=== PATIENT | female | born 1965 | race Caucasian/White ===

== ENCOUNTER 2023-12-17 21:52 | Observation (INO) | payer OTHER, SELFPAY ==
[2023-12-17 22:01] VITALS: BP 161/72; PULSE 79; RESP 16; TEMP 36.8; O2SAT 96; BMI 34.5
--- NOTE | 2023-12-17 22:18 | CRLHL7_ITS ---
For Patients: As a result of the Century Cures Act, medical imaging exams and procedure reports are released immediately into your electronic medical record. You may view this report before your referring provider. If you have questions, please contact your health care provider. INDICATION: Suprapubic abdominal pain, hematochezia. TECHNIQUE: CT abdomen and pelvis acquired with 95 cc Isovue 370 IV contrast. COMPARISON: None. FINDINGS: Lower chest: Unremarkable. Liver: Hepatic steatosis. No suspicious masses. Gallbladder and bile ducts: Unremarkable. No stones or inflammation. No biliary ductal dilatation. Spleen: Unremarkable. Normal in size. No masses. Adrenal glands: Unremarkable. No nodules. Pancreas: Subcentimeter hypodense focus in the pancreatic head is too small to accurately characterize. Kidneys: Unremarkable. No suspicious masses, stones, or hydronephrosis. GI tract: Colonic diverticulosis. Wall thickening and edema of the distal transverse colon extending to the splenic flexure. No evidence of obstruction. Appendix is not well visualized, however there is no evidence of right lower quadrant inflammatory stranding. Lymph nodes: No lymphadenopathy. Vasculature: Unremarkable. Omentum/Peritoneum/Abdominal Wall: Small fat containing umbilical hernia. No free air or significant free fluid. Pelvis: Unremarkable. Bones: Degenerative changes. IMPRESSION: 1. Wall thickening and edema of the distal transverse colon, likely representing nonspecific colitis or less likely diverticulitis. 2. Hepatic steatosis. Please note that all CT scans at this facility use dose modulation, iterative reconstruction, and/or weight-based dosing when appropriate to reduce radiation dose to as low as reasonably achievable. Dictated by Bunny Hackett MD @ 12/17/2023 11:44:33 PM (Electronically Signed)
[2023-12-17 22:32] LABS: Basophils Percent Auto 0.1 % (0.0-3.0); Eosinophils Percent Auto 1.5 % (0.0-7.0); Hematocrit 41.3 % (33.0-51.0); Hemoglobin* 13.6 gm/dL (12.0-16.0); Immature Granulocytes Pct Auto 0.1 %; Lymphocytes Percent Auto 28.5 % (20-44); Mean Corpuscular HGB Conc 33 gm/dL (32-36); Mean Corpuscular Hemoglobin 30 pg (26-34); Mean Corpuscular Volume 90 fL (80-100); Monocytes Percent Auto 6.9 % (0.0-11.0); Neutrophils Percent Auto 62.9 % (42.0-72.0); Platelet Count* 253 K/uL (140-440); Red Blood Count 4.59 m/uL (4.00-5.20); White Blood Count* 16.02 K/uL (4.50-11.00)
[2023-12-17 22:35] LABS: Slide Review Reflex No
--- NOTE | 2023-12-17 22:38 | ED.GIBLEED ---
HPI - GI Bleed General Date Seen: 12/17/23 Chief complaint: GI Bleed Stated complaint: blood in stool Time Seen by Provider: 12/17/23 21:53 Source: patient and family Mode of arrival: ambulatory Limitations: no limitations History of Present Illness HPI Narrative: starting yesterday patient passing loose bloody stools. with some abd. cramping. rated 4/10 for pain. patient states today she has not had a BM but her cramping has continued to get worse. no hx of blood thinners or NSAIDS, no hx of GI bleeds in the past. states she is due for her colonoscopy. Patient is a very nice 58-year-old female for evaluation of lower GI bleeding, when she has bowel movement she has a little bit of blood on the examining toilet bowl. She notes that she has had 6 or 7 episodes today with associated gas and some tenesmus and lower abdominal cramping associated with this. This started yesterday, she thought she might have had a A bug, but then developed a bleeding today. She has never before had rectal bleeding . Does take occasional ibuprofen for back discomfort at night time. But has not done that for the last few days. Is not on any anticoagulants, has no history of bleeding tendencies. Her colonoscopy she gets every 5 years, for a family history of colon cancer. And other than as a follow-up she has had no other problems. Denies any fevers chills or sweats there is no nausea vomiting she last ate at approximately 2:00 a.m.. No radiation of discomfort describes heard pain is approximately 2 to 3/10. Pain medications. complaint: blood on toilet paper, blood streaked stool and gross hematochezia Onset (ago): hour(s) Pain Consistency: intermittent and now resolved Severity: moderate Relieving factors: none and bowel movement Associated symptoms: denies other symptoms Treatments Prior to Arrival: none Related Data Home Medications ?Medication ?Instructions ?Recorded ?Confirmed No Known Home Medications 12/17/23 12/17/23 Allergies Allergy/AdvReac Type Severity Reaction Status Date / Time No Known Drug Allergies Allergy Verified 12/17/23 22:05 Review of Systems Status of ROS: Reports: 10 or more systems reviewed and unremarkable except as noted in History and below PFSH PFSH Social History Smoking Status: Never smoker Non-prescribed substance use: denies use Exam Narrative: Exam Narrative: On examination she is in no apparent distress she is pleasant alert, pupils equal round reactive to light well perfused, no scleral icterus TMs normal oropharynx normal neck is supple full range of motion no meningismus chest is clear bilaterally no wheezing crackles noted heart sounds no clicks murmurs or gallops her abdomen is soft and obese there is no guarding no organomegaly bowel sounds are normal. Skin reveals no petechiae rashes. She moves all extremities independently well is neurologically intact in her upper lower extremities. With a nurse present rectal exam is done with anoscopy. There was bright red blood just above the anoscope P tip. I did not see any evidence of internal or external hemorrhoids. Fecal occult blood sent. No masses with the examining finger. Const: Vital Signs, click to edit/add: Vital Signs - 24 hr 12/17/23 22:01 12/17/23 23:41 Temperature 98.2 F Pulse Rate [Pulse Oximeter] 79 78 Respiratory Rate 16 16 Blood Pressure [Ri ght Upper Arm] 161/72 H 132/64 Pulse Oximetry 96 98 Oxygen Delivery Me thod Room Air Room Air Documenting provider has reviewed patient's vital signs: yes Course Course ED Course: CT scan shows some inflammation of the distal transverse colon, this could be diverticulitis or colitis. Given her bleeding, we will admit her and give her antibiotics I discussed this with the telemedicine hospitalist. She is also allergic to amoxicillin which causes a rash, we will change her Zosyn to imipenem. Consultations Consultation #1: I spoke with my surgeon Dr. Guzman about her. She also reviewed the CT scan, she thinks also that this is likely a diverticular bleed. But recommends also watching her in the hospital. Given the amount of bleeding that she has had. We will do a type and screen. These lower GI bleeds tend to stop with time. IV fluids NPO status. I will speak to Hospital Medicine. Vital Signs Vital signs: Initial Vital Signs Temperature 98.2 F 12/17/23 22:01 Temperature Source Temporal Artery Scan 12/17/23 22:01 Pulse Rate 79 12/17/23 22:01 Respiratory Rate 16 12/17/23 22:01 Blood Pressure 161/72 H 12/17/23 22:01 Blood Pressure Mean 101 05/26/24 22:01 Blood Pressure Position Sitting 12/17/23 22:01 Pulse Oximetry 96 12/17/23 22:01 Oxygen Delivery Method Room Air 12/17/23 22:01 Vital Signs Temperature 98.2 F 12/17/23 22:01 Pulse Rate 79 12/17/23 22:01 Respiratory Rate 16 12/17/23 22:01 Blood Pressure 161/72 H 12/17/23 22:01 Pulse Oximetry 96 12/17/23 22:01 Oxygen Delivery Method Room Air 12/17/23 22:01 Temperature 98.2 F 12/17/23 22:01 Pulse Rate 78 12/17/23 23:41 Respiratory Rate 16 12/17/23 23:41 Blood Pressure 132/64 12/17/23 23:41 Pulse Oximetry 98 12/17/23 23:41 Oxygen Delivery Method Room Air 12/17/23 23:41 Medications Administered Medications: Generic Name Dose Route Start Last Admin Trade Name Freq PRN Reason Stop Dose Admin Sodium Chloride 1,000 mls @ 1,000 mls/hr 12/17/23 22:30 12/17/23 23:40 0.9 % Sodium Chloride 1000 Ml IV 12/17/23 23:29 Infused .Q1H ULI Infusion MDM - GI Bleed MDM Narrative Medical decision making narrative: Differential diagnosis includes but is not limited to Crohn's disease, gastric ulcer, duodenal ulcer, intussusception, lower GI bleeding, bleeding from hemorrhoids, anal fissure, angiodysplasia, inflammatory bowel disease, dysentery, ulcerative colitis, Meckel's diverticulum, Henoch-Schoenlein purpura, colorectal polyps or with or without removal. Life-threatening differential diagnosis include hypovolemia from the bleeding and/or cancer Differential Diagnosis Differential diagnosis: Likely hemorrhoids, infectious diarrhea, esophageal varices, gastritis, Rossy-Gutierrez syndrome, Upper gastrointestinal hemorrhage, Lower gastrointestinal hemorrhage, hematochezia, melena and anal fissure Medical Records Attestation: I reviewed the patient's medical records. Lab Data Attestation: I reviewed the patient's lab results. Labs: Lab Results 12/17/23 12/17/23 Range/Units 22:27 22:50 WBC 16.02 H (4.50-11.00) K/uL RBC 4.59 (4.00-5.20) m/uL Hgb 13.6 (12.0-16.0) gm/dL Hct 41.3 (33.0-51.0) % MCV 90 (80-100) fL MCH 30 (26-34) pg MCHC 33 (32-36) gm/dL RDW Coeff of Mora 13.0 (11.5-15.5) % Plt Count 253 (140-440) K/uL Neut % (Auto) 62.9 (42.0-72.0) % Lymph % (Auto) 28.5 (20-44) % [place] % (Auto) 6.9 (0.0-11.0) % Eos % (Auto) 1.5 (0.0-7.0) % Baso % (Auto) 0.1 (0.0-3.0) % Neut # (Auto) 10.10 H (1.7-7.0) K/uL Lymph # (Auto) 4.60 H (0.90-2.90) K/uL [place] # (Auto) 1.10 H (0.00-0.90) K/UL Eos # (Auto) 0.20 (0.00-0.50) K/uL Baso # (Auto) 0.00 (0.00-0.30) K/uL Abs Immat Gran (auto) 0.00 (0.00-0.30) K/uL Imm/Tot Granulo (auto) 0.1 % INR 0.97 (0.91-1.10) APTT 26 (23-33) Seconds Sodium 138 (135-149) mmol/L Potassium 3.7 (3.6-5.1) mmol/L Chloride 106 (96-114) mmol/L Carbon Dioxide 25 (20-32) mmol/L Anion Gap 7 (7-15) mEq/L BUN 18 (7-30) mg/dL Creatinine 0.7 (0.5-1.5) mg/dL Estimated Creat Clear 73.35 Estimated GFR 101 ml/min Glucose 102 (60-115) mg/dL Calcium 8.9 (8.4-10.6) mg/dL Total Bilirubin 0.7 (0.1-1.5) mg/dL Direct Bilirubin 0.4 (0.0-0.5) mg/dL AST 34 (12-35) U/L ALT 40 H (4-35) U/L Alkaline Phosphatase 87 (40-150) U/L Total Protein 7.9 (6.0-8.3) g/dL Albumin 4.6 (3.3-5.0) g/dL Amylase 76 (18-89) U/L Lipase 114 (23-300) U/L Stool Occult Blood Positive A (Negative) Blood Type O Positive Antibody Screen NEGATIVE Imaging Data CT scan - abdomen: Attestation: I have reviewed the pertinent imaging results. Radiologist's impression: Radiologist saw inflammation of the distal colon, consistent with either colitis or possibly diverticulitis come Discharge Plan Discharge Clinical Impression: Colitis, Hematochezia, Diverticulitis Patient Disposition: Admitted As Observation Condition: Stable Prescriptions: No Action No Known Home Medications Follow Up/Referrals: Milla Desouza MD [Primary Care Provider] -
[2023-12-17 22:48] LABS: Albumin* 4.6 g/dL (3.3-5.0)
[2023-12-17 22:49] LABS: Chloride* 106 mmol/L (96-114); Potassium* 3.7 mmol/L (3.6-5.1); Sodium* 138 mmol/L (135-149)
[2023-12-17 22:51] LABS: Amylase* 76 U/L (18-89); Anion Gap 7 mEq/L (7-15); Bilirubin Direct* 0.4 mg/dL (0.0-0.5); Bilirubin Total* 0.7 mg/dL (0.1-1.5); Blood Urea Nitrogen* 18 mg/dL (7-30); Carbon Dioxide* 25 mmol/L (20-32); Creatinine* 0.7 mg/dL (0.5-1.5); Est. Creatinine Clearance* 73.35; Estimated Glomerular Filt Rate 101 ml/min; Total Protein* 7.9 g/dL (6.0-8.3)
[2023-12-17 22:52] LABS: Alanine Aminotransferase* 40 U/L (4-35); Alkaline Phosphatase* 87 U/L (40-150); Aspartate Amino Transferase* 34 U/L (12-35); Calcium* 8.9 mg/dL (8.4-10.6); Glucose* 102 mg/dL (60-115); Lipase* 114 U/L (23-300)
[2023-12-17] MEDS: 0.9 % SODIUM CHLORIDE 1000 ml 1,000 ML IV (22:56)
[2023-12-17 23:06] LABS: INR 0.97 (0.91-1.10); Prothrombin Time 13.5 Seconds
[2023-12-17 23:07] LABS: Fecal Occult Blood* Positive (Negative)
[2023-12-17 23:13] LABS: Partial Thromboplastin Time* 26 Seconds (23-33)
[2023-12-17 23:41] VITALS: BP 132/64; PULSE 78; RESP 16; O2SAT 98
[2023-12-18 02:22] VITALS: BP 132/62; PULSE 70; RESP 18; TEMP 36.6; O2SAT 97; BMI 35.8
--- NOTE | 2023-12-18 03:09 | W.PM.THH&P_ITS ---
Telehealth- H&P: HPI History of Present Illness Date Seen: 12/18/23 Chief complaint: blood in stool Narrative: Guera Adams is seen as an Interactive Telehealth visit. Guera Adams is a 58 year old female who presented to the emergency room with bloody stools. Guera gives the history that she started having bloody stools yesterday and then continued to have bloody stools all day today. She states that she had some diarrhea originally with the bloody stools, but eventually they just became almost pure blood. She denied any fever or chills. She denied any overt abdominal pain but states that she has had a fair amount of cramping with the bloody stools. She is not noted anyone else in the family to have bloody stools and she has not had any recent illness. She states she has had some back pain for the last 6 months when bending or turning but has been seen by physical therapy and does not feel that this has anything to do with her bloody stools. She states that today she seems like she was having bright red blood per rectum about every 1/2 hour. She does get normal colonoscopies and did have her first colonoscopy about age 46 and has been getting them every 5 years since. She feels that she most likely is due for another colonoscopy this year. They have found polyps in the past but otherwise no significant findings on colonoscopy. Her last bloody stool was at midnight approximately 2 hours ago. She has noticed a fair amount of gas with her bloody stools. She otherwise denies any other acute complaints or problems at the time I am seeing her. With her bright red blood per rectum, she is currently being admitted to the medical service for further evaluation. Review of Systems Status of ROS: Reports: 10 or more systems reviewed and unremarkable except as noted in History and below [facility] Social History Smoking Status: Never smoker Non-prescribed substance use: denies use Meds Home Medications and Allergies Home Medications ?Medication ?Instructions ?Recorded ?Confirmed ?Type No Known Home Medications 12/17/23 12/17/23 History Allergies Allergy/AdvReac Type Severity Reaction Status Date / Time amoxicillin Allergy Intermediate Verified 12/18/23 01:06 oxycodone Allergy Intermediate Verified 12/18/23 01:06 Exam Narrative Exam Narrative: Physical Exam GENERAL: vital signs reviewed, well developed and nourished, in no distress HEENT: pupils are equal round and reactive to light, extraocular movements are grossly within normal limits and oral mucosa is moist. NECK: Supple without lymphadenopathy or thyromegaly according to nursing staff examination observation HEART: Regular rate and rhythm without any rubs, murmurs or gallops. LUNGS: Clear to auscultation bilaterally with good air movement throughout ABDOMEN: Observation from nurse assisted exam, abdomen appears soft with minimal tenderness noted over the lower quadrants of her abdomen. Her abdomen is otherwise nondistended with Positive bowel sounds noted. EXTREMITIES: Strength and sensation is observed to be grossly within normal limits in the upper and lower extremities. No focal strength deficit is observed SKIN: Observed warm and dry with color normal NEURO: Alert, awake and oriented ?3. Answers all questions appropriately. No focal neuro deficits are noted. PSYCH: Affect normal Const Vital Signs, click to edit/add: Vital Signs - 24 hr 12/17/23 22:01 12/17/23 23:41 Temperature 98.2 F Pulse Rate [Pulse Oximeter] 79 78 Respiratory Rate 16 16 Blood Pressure [Right Upper Arm] 161/72 H 132/64 Pulse Oximetry 96 98 Oxygen Delivery Method Room Air Room Air Documenting provider has reviewed patient's vital signs: yes Hospitalist - H&P: Result Labs Labs: Short CBC 12/17/23 Range/Units 22:27 WBC 16.02 H (4.50-11.00) K/uL Hgb 13.6 (12.0-16.0) gm/dL Hct 41.3 (33.0-51.0) % Plt Count 253 (140-440) K/uL BMP 12/17/23 22:27 Sodium 138 Potassium 3.7 Chloride 106 Carbon Dioxide 25 BUN 18 Creatinine 0.7 Glucose 102 Calcium 8.9 Liver Function 12/17/23 Range/Units 22:27 Total Bilirubin 0.7 (0.1-1.5) mg/dL Direct Bilirubin 0.4 (0.0-0.5) mg/dL AST 34 (12-35) U/L ALT 40 H (4-35) U/L Alkaline Phosphatase 87 (40-150) U/L Albumin 4.6 (3.3-5.0) g/dL Assessment and Plan Assessment and plan (1) BRBPR (bright red blood per rectum): Status: Acute Plan Assessment: 1. New onset bright red blood per rectum 2. Leukocytosis suspicious for possible diverticulitis and diverticular bleed contributing to #1 above 3. Family history of colonic polyps with patient having every 5 years colonoscopy with no significant abnormalities Plan: At this time Guera will be admitted to the medical service. I will give her some IV fluid for hydration and will continue to evaluate serial hemoglobins on a every 6 hour basis. I do believe this likely represents a diverticular bleed with her leukocytosis and bright red blood per rectum. Hopefully the bleeding will subside in the next 12 to 24 hours. If she continues to have bright red blood per rectum, would suggest possibly asking for surgical consult for further evaluation. I will continue with the IV Invanz that was started in the emergency room. Will continue to watch for any further signs of infection. I have discussed this plan with Guera and she is agreeable to proceed. Will continue to follow closely from medical standpoint. I have discussed CODE STATUS with Guera and she does wish to be a full code. This will be ordered per her wishes. Telehealth: Statement Statement Telehealth Visit: Today's History and Physical is provided via interactive telehealth by Oneil Kinsey MD.? Patient is located at [facility].? Provider is located at [facility].? Nursing staff assisted with the patient's exam. The visit being done today meets criteria for a telehealth visit and the patient or patient?s parent/guardian is aware the visit is a telehealth visit. Camera Start Time: 02:32 Camera End Time: 02:49
[2023-12-18] MEDS: LACTATED RINGERS 1000 ML 1,000 ML 125 ML IV (03:30)
[2023-12-18 03:50] LABS: Hemoglobin* 12.3 gm/dL (12.0-16.0)
[2023-12-18 07:00] VITALS: BP 149/79; PULSE 69; RESP 16; TEMP 36.6; O2SAT 96
[2023-12-18 07:42] LABS: Basophils Percent Auto 0.2 % (0.0-3.0); Eosinophils Percent Auto 1.8 % (0.0-7.0); Hematocrit 36.8 % (33.0-51.0); Hemoglobin* 12.1 gm/dL (12.0-16.0); Immature Granulocytes Pct Auto 0.2 %; Lymphocytes Percent Auto 31.2 % (20-44); Mean Corpuscular HGB Conc 33 gm/dL (32-36); Mean Corpuscular Hemoglobin 30 pg (26-34); Mean Corpuscular Volume 90 fL (80-100); Monocytes Percent Auto 7.9 % (0.0-11.0); Neutrophils Percent Auto 58.7 % (42.0-72.0); Platelet Count* 216 K/uL (140-440); RDW Coefficient of Variation % 13.3 % (11.5-15.5); Red Blood Count 4.09 m/uL (4.00-5.20)
[2023-12-18 07:46] LABS: Slide Review Reflex No
[2023-12-18 10:13] LABS: Hemoglobin* 12.6 gm/dL (12.0-16.0)
[2023-12-18 10:32] LABS: C.Difficile Negative (Negative); CDIFFEPI 027 PRESUMPTIVE NEGATIVE (Negative)
[2023-12-18 11:00] VITALS: BP 130/65; PULSE 72; RESP 16; TEMP 36.6; O2SAT 96
[2023-12-18] MEDS: ACETAMINOPHEN 325 MG TABLET PO (13:42)
--- NOTE | 2023-12-18 15:30 | PC.NURSE ---
End of Shift: Patient pleasant and cooperative. Afebrile. C/o pain 5/10 in abdomen with intermittent cramping. PRN Tylenol x1 for headache. Up independently in room. Patient had 2 stools this morning with red/maroon blood noted mixed with stool. Diet advanced to fulls with no nausea or increase in cramping.
--- NOTE | 2023-12-18 15:37 | P.DS_ITS ---
DS: Providers Provider Date Seen: 12/18/23 Date of admission: 12/18/23 00:29 Primary care physician: Milla Desouza MD Admitting Clinician: Emily Zaldivar MD Attending Physician on discharge: Jarret Mckeon MD Date of Discharge: 12/18/23 DS: Diagnosis Discharge Diagnosis (1) BRBPR (bright red blood per rectum): Status: Acute Problem details: 58-year-old female who is previously healthy presents with a 1 day history of bloody diarrhea stools. She also reports she have some crampy abdominal pain with this. She has not had a fever. She had no known exposure or ill contacts. No recent travel. No recent antibiotics. [place] not [place]. She gets routine colonoscopies every 5 years because of family history. She is due for her 5 year colonoscopy now. (2) Colitis: Status: Acute Problem details: CT scan shows distal transverse colon thickening consistent with colitis DS: Summary Hospital Course Hospital Course: Guera Adams is a 58 year old female who presented to the emergency room with bloody stools. Guera gives the history that she started having bloody stools yesterday and then continued to have bloody stools all day today. She states that she had some diarrhea originally with the bloody stools, but eventually they just became almost pure blood. She denied any fever or chills. She denied any overt abdominal pain but states that she has had a fair amount of cramping with the bloody stools. She is not noted anyone else in the family to have bloody stools and she has not had any recent illness. She states she has had some back pain for the last 6 months when bending or turning but has been seen by physical therapy and does not feel that this has anything to do with her bloody stools. She states that today she seems like she was having bright red blood per rectum about every 1/2 hour. She does get normal colonoscopies and did have her first colonoscopy about age 46 and has been getting them every 5 years since. She feels that she most likely is due for another colonoscopy this year. They have found polyps in the past but otherwise no significant findings on colonoscopy. Her last bloody stool was at midnight approximately 2 hours ago. She has noticed a fair amount of gas with her bloody stools. She otherwise denies any other acute complaints or problems at the time I am seeing her. With her bright red blood per rectum, she is currently being admitted to the medical service for further evaluation. Since admission to the hospital she has had 1 small bloody stool early this morning. No bowel movement or stool since that time. She has had no abdominal tenderness or pain and she has tolerated a regular diet. She is anxious to go home Status at Discharge Functional status at discharge: independent ambulation Overall status at discharge: patient is progressing back to baseline Time Spent with Patient Time attestation: Total time spent providing and/or coordinating discharge services:40 minutes Time spent: Greater than 30 minutes Exam Narrative: Exam Narrative: She is alert and appears in no distress. Oropharynx is normal. Respirations are clear to auscultation. Cardiovascular: S1, S2, regular rate and rhythm. No murmur gallop or rub. Abdomen: Bowel sounds active. Abdomen is soft without tenderness or mass. Const: Vital Signs, click to edit/add: Vital Signs - 24 hr 12/17/23 22:01 12/17/23 23:41 12/18/23 02:22 Temperature 98.2 F 97.8 F Pulse Rate [Apical ] 70 Pulse Rate [Pulse Oximeter] 79 78 Respiratory Rate 16 16 18 Blood Pressure [Ri ght Arm] 132/62 Blood Pressure [Ri ght Upper Arm] 161/72 H 132/64 Pulse Oximetry 96 98 97 Oxygen Delivery Me thod Room Air Room Air Room Air 12/18/23 07:00 12/18/23 07:00 12/18/23 11:00 Temperature 97.8 F 97.9 F Pulse Rate [Apical ] 69 69 72 Pulse Rate [Pulse Oximeter] Respiratory Rate 16 16 16 Blood Pressure [Ri ght Arm] 149/79 H 130/65 Blood Pressure [Ri ght Upper Arm] Pulse Oximetry 96 96 Oxygen Delivery Me thod Room Air Room Air Documenting provider has reviewed patient's vital signs: yes DS: Data Data Completed and Pending Labs on day of discharge: Labs from last 24 hours 12/18/23 12/18/23 12/18/23 15:25 10:07 07:51 WBC Pending RBC Pending Hgb Pending 12.6 Hct Pending MCV Pending MCH Pending MCHC Pending RDW Coeff of Mora Plt Count Pending Neut % (Auto) Pending Lymph % (Auto) Pending Howell % (Auto) Pending Eos % (Auto) Pending Baso % (Auto) Pending Neut # (Auto) Pending Lymph # (Auto) Pending Howell # (Auto) Pending Eos # (Auto) Pending Baso # (Auto) Pending Abs Immat Gran (auto) Imm/Tot Granulo (auto) INR APTT Sodium Potassium Chloride Carbon Dioxide Anion Gap BUN Creatinine Estimated Creat Clear Estimated GFR Glucose Calcium Total Bilirubin Direct Bilirubin AST ALT Alkaline Phosphatase Total Protein Albumin Amylase Lipase Stool Occult Blood Stool Calprotectin Pending Stl C. diff Tox B Gene Stl C. diff 027-NAP1-BI Blood Type Antibody Screen 12/18/23 12/18/23 12/18/23 07:42 07:03 03:30 WBC 12.00 H RBC 4.09 Hgb 12.1 12.3 Hct 36.8 MCV 90 MCH 30 MCHC 33 RDW Coeff of Mora 13.3 Plt Count 216 Neut % (Auto) 58.7 Lymph % (Auto) 31.2 Howell % (Auto) 7.9 Eos % (Auto) 1.8 Baso % (Auto) 0.2 Neut # (Auto) 7.00 Lymph # (Auto) 3.70 H Howell # (Auto) 0.90 Eos # (Auto) 0.20 Baso # (Auto) 0.00 Abs Immat Gran (auto) 0.00 Imm/Tot Granulo (auto) 0.2 INR APTT Sodium Potassium Chloride Carbon Dioxide Anion Gap BUN Creatinine Estimated Creat Clear Estimated GFR Glucose Calcium Total Bilirubin Direct Bilirubin AST ALT Alkaline Phosphatase Total Protein Albumin Amylase Lipase Stool Occult Blood Stool Calprotectin Stl C. diff Tox B Gene Negative Stl C. diff 027-NAP1-BI PRESUMPTIVE NEGATIVE Blood Type Antibody Screen 12/17/23 12/17/23 22:50 22:27 WBC 16.02 H RBC 4.59 Hgb 13.6 Hct 41.3 MCV 90 MCH 30 MCHC 33 RDW Coeff of Mora 13.0 Plt Count 253 Neut % (Auto) 62.9 Lymph % (Auto) 28.5 Howell % (Auto) 6.9 Eos % (Auto) 1.5 Baso % (Auto) 0.1 Neut # (Auto) 10.10 H Lymph # (Auto) 4.60 H Howell # (Auto) 1.10 H Eos # (Auto) 0.20 Baso # (Auto) 0.00 Abs Immat Gran (auto) 0.00 Imm/Tot Granulo (auto) 0.1 INR 0.97 APTT 26 Sodium 138 Potassium 3.7 Chloride 106 Carbon Dioxide 25 Anion Gap 7 BUN 18 Creatinine 0.7 Estimated Creat Clear 73.35 Estimated GFR 101 Glucose 102 Calcium 8.9 Total Bilirubin 0.7 Direct Bilirubin 0.4 AST 34 ALT 40 H Alkaline Phosphatase 87 Total Protein 7.9 Albumin 4.6 Amylase 76 Lipase 114 Stool Occult Blood Positive A Stool Calprotectin Stl C. diff Tox B Gene Stl C. diff [id number]-NAP1-BI Blood Type O Positive Antibody Screen NEGATIVE Imaging CT scan - abdomen: Radiologist's impression: INDICATION: Suprapubic abdominal pain, hematochezia. TECHNIQUE: CT abdomen and pelvis acquired with 95 cc Isovue 370 IV contrast. COMPARISON: None. FINDINGS: Lower chest: Unremarkable. Liver: Hepatic steatosis. No suspicious masses. Gallbladder and bile ducts: Unremarkable. No stones or inflammation. No biliary ductal dilatation. Spleen: Unremarkable. Normal in size. No masses. Adrenal glands: Unremarkable. No nodules. Pancreas: Subcentimeter hypodense focus in the pancreatic head is too small to accurately characterize. Kidneys: Unremarkable. No suspicious masses, stones, or hydronephrosis. GI tract: Colonic diverticulosis. Wall thickening and edema of the distal transverse colon extending to the splenic flexure. No evidence of obstruction. Appendix is not well visualized, however there is no evidence of right lower quadrant inflammatory stranding. Lymph nodes: No lymphadenopathy. Vasculature: Unremarkable. Omentum/Peritoneum/Abdominal Wall: Small fat containing umbilical hernia. No free air or significant free fluid. Pelvis: Unremarkable. Bones: Degenerative changes. IMPRESSION: 1. Wall thickening and edema of the distal transverse colon, likely representing nonspecific colitis or less likely diverticulitis. 2. Hepatic steatosis. Discharge Plan Discharge Disposition: Home, Self-Care Date of Admission: 12/18/23 00:29 Attending Provider on Discharge: Faraz Mckeon Primary Care Provider: Milla Desouza Condition: Stable Anticipated Discharge Date/Time: 12/18/23 16:00 Discharge Medications: No Action No Known Home Medications Discharge Orders: Discharge Order (Routine); Ordered 12/18/23 Ordered By: Faraz Mckeon Additional Instructions: Follow-up with Dr. Spivey at [facility] for colonoscopy in the next month. You will likely have some blood in your bowel movements in the next couple days. If you have significant abdominal pain, severe diarrhea or significant ongoing bleeding return to the emergency department. Activity Level: Activity as Tolerated Discharge Diet: Regular Follow Up Appointments: Milla Desouza MD [Primary Care Provider] - (Follow-up this week if still having ongoing bloody stools, diarrhea or abdominal pain.) Forms: [facility] Info Instructions
[2023-12-18 15:42] LABS: Basophils Percent Auto 0.2 % (0.0-3.0); Eosinophils Percent Auto 1.8 % (0.0-7.0); Hematocrit 38.5 % (33.0-51.0); Hemoglobin* 12.5 gm/dL (12.0-16.0); Immature Granulocytes Pct Auto 0.7 %; Mean Corpuscular HGB Conc 33 gm/dL (32-36); Mean Corpuscular Hemoglobin 29 pg (26-34); Mean Corpuscular Volume 91 fL (80-100); Monocytes Percent Auto 7.5 % (0.0-11.0); Neutrophils Percent Auto 60.8 % (42.0-72.0); Platelet Count* 233 K/uL (140-440); RDW Coefficient of Variation % 13.2 % (11.5-15.5); Red Blood Count 4.25 m/uL (4.00-5.20); White Blood Count* 12.48 K/uL (4.50-11.00)
[2023-12-18 15:45] LABS: Slide Review Reflex No
[2023-12-19 17:27] LABS: Calprotectin, Fecal 1240 ug/g (<=49)
== END 2023-12-18 16:30 | disposition home or self-care (01) ==
LOC: ED 12-18 00:26 → MEDSURG 12-18 00:30
PROVIDERS: Family Medicine; Internal Medicine; Admitting Provider Family Medicine; Emergency Provider Family Medicine; PCP Student in an Organized Health Care Education/Training Program; Visit Provider Family Medicine
DX: K52.9 Noninfective gastroenteritis and colitis, unspecified (principal); K92.1 Melena; K76.0 Fatty (change of) liver, not elsewhere classified; K42.9 Umbilical hernia without obstruction or gangrene; M89.8X9 Other specified disorders of bone, unspecified site; Z80.0 Family history of malignant neoplasm of digestive organs
CPT/HCPCS: 36415; 74177; 80048; 80076; 82150; 82270; 83690; 83993; 85018; 85025; 85610; 85730; 86850; 86900; 86901; 87045; 87046; 87427; 87493; 96361; 96365; 96366; 99284; A9270; G0378; J0743; J7030; J7120; Q9967

== ENCOUNTER 2025-02-21 21:09 | Observation (INO) | payer OTHER, SELFPAY ==
--- OUTSIDE RECORDS SUMMARY | 2025-02-21 21:13 | XMS_ITS | Clinical Summary ---
Author Organization [employer] [facility] [employer] [facility] Address [address] [place] [id number] Care Team Providers Care Project Management Engineer Name Role Phone Milla Desouza MD Primary Care Prov ider Allergies Active Allergy Reactions Criticality Noted Date Comments Amoxicillin Rash High 12/18/2023 Hives Morphine Hives 03/17/2007 pt believes it is duramorph Oxycodone Angioedema 01/06/2020 Penicillins Medications cholecalciferol (VITAMIN D3) 1,000 unit capsule Take 1 capsule by mouth once daily. 0 0 Active ibuprofen (ADVIL; MOTRIN) 200 mg tablet Take 4 tablets by mouth 2 times daily. 0 Active metroNIDAZOLE 0.75 % cream Apply topically to affected area(s) two times daily. follow with moisturizer 3 Active cyclobenzaprine (FLEXERIL) 10 mg tabletIndicatio ns:Acute bilateral thoracic back pain Take 1 Tablet (10 mg) by mouth 3 times daily if needed for Muscle Spasm. 20 Tablet 4 Active naproxen (NAPROSYN) 500 mg tabletIndicatio ns:Acute bilateral thoracic back pain Take 1 Tablet (500 mg) by mouth every 12 hours if needed for Pain (take prior to bed). 14 Tablet 4 Active Active Problems Problem Noted Date Diagnosed Date Cervical cancer screening 12/03/2024 Overview (12/03/2024): 10/2024 NIL/HPV negative. Plan: Pap/HPV due 10/2029. 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 Anosmia 09/08/2012 Family hx colonic polyps 04/22/2011 Overview (02/07/2024): Colonoscopy 2018 normal repeat in 5 years Colonoscopy 01/2024 diverticulosis, repeat in 5 years, propofol Vitamin D deficiency 09/04/2008 Hand paresthesia 09/01/2008 Atypical chest pain 09/01/2008 Resolved Problems Problem Noted Date Diagnosed Date Resolved Date Routine general medical exam ination at a health care facility 09/01/2008 11/18/2024 Otitis externa; chronic 09/01/200810/23 Immunizations Immunization Administration Dates Next Due Td (Age >=7 Years) 10/26/2004 Tdap 06/23/2023,04/12/2012 Family History Medical History Relation Name Comments Arthritis Maternal Grandmother osteoar thritis Stroke Maternal Grandmother Hypertension Mother Heart Disease Paternal Grandfather Heart Disease Paternal Grandmother Cancer-breast No Family History Relation Name Status Comments Father Alive Maternal Grandmother (Age 80) Mother Alive Paternal Grandfather Paternal Grandmother Social History Tobacco Use Types Packs/Day Years Used Date Smoking Tobacco: Never Smokeless Tobacco: Never Tobacco Cessation:Counseling Given: Yes Alcohol Use Standard Drinks/Week Comments Not Currently 0 (1 standard drink = 0.6 oz pur e alcohol) occ PHQ-2 Answer Date Recorded PHQ-2 TOTAL SCORE 0 11/15/2024 Social Connections Answer Date Recorded Do you often feel lonely or isolated from those around you? 0 11/15/2024 Financial Resource Strain Answer Date R ecorded Difficulty of Paying Living Expenses 3 11/15/2024 Difficulty of Paying Living Expenses Not on file 11/15/2024 Food Insecurity Answer Date Recorded Do you worry your food will run out before you are able to buy more? 1 11/15/2024 Transportation Needs Answer Date Record ed Does lack of transportation keep you from medica l appointments? 1 11/15/2024 Does lack of transportation keep you from work, meetings or getting things that you need? 1 11/15/2024 Housing Stability Answer Date Recorded What is your housing situation today? 1 11/15/2024 Utilities Answer Date Recorded Do you have trouble paying f or utilities (for example, heat, electricity, water, phone)? 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 Not on file Not on file Not on f ile Obstetrics History Para Term AB IAB SAB Ectopic Multiple Livin g Live Births 6 5 5 1 1 5 Date Outcome GA Total Labor Labor/2nd/3rd Weight Sex Type Anes PTL Sherri A1 A5 Name Clin SAB Term Term Term Term Term Last Filed Vital Signs Vital Sign Reading Time Taken Comments Blood Pressure 135/80 11/15/2024 3:02 PM CDT Pulse 75 11/15/2024 3:02 PM CDT Temperature 36.9 C (98.5 F) 12/10/2022 10:01 AM CDT Respiratory Rate 16 02/07/2024 11:25 AM CDT Oxygen Saturation 97% 11/15/2024 3:02 PM CDT Inhaled Oxygen Concentration - - Weight 91.2 kg (201 lb) 11/15/2024 3:02 PM CDT Height 160.5 cm (5' 3.19) 11/15/2024 3:02 PM CD T Body Mass Index 35.39 11/15/2024 3:02 PM CDT Plan of Treatment Health Maintenance Due Date Last Done Comments HIV for age 15-65 1981 Hepatitis C screening for ag e 18-79 1984 Hepatitis B series for 19+ ( 1 of 3 - 19+ 3-dose series) 1985 Pneumococcal series for age 50+ (1 of 1 - PCV) 2016 Zoster (shingles) series for age 50+ (1 of 2) 2016 COVID-19 vaccine series (1 - 2023- season) 2024 Influenza Vaccine (#1) 2025 BMI (ht and wt on same day) for age 18+ 11/15/2025 11/15/2024, 06/23/2023, 02/21/2022, Additional history exists Depression screening for age 12+ 11/15/2025 11/15/2024, 05/26/2021, 01/07/2020, Additional history exists Mammogram for age 45-75 11/15/2025 11/16/19, 06/23/2023, 05/26/2021, Additional history exists Colonoscopy through age 75 02/06/202902/06, 02/07/2024, 10/12/2018, Additional history exists Lipids for age 45-75 11/15/2029 11/15/2024, 06/23/2023, 05/26/2021, Additional history exists Pap test for age 21-65 11/15/2029 , 11/15/2024, 03/04/2019, Additional history exists Tetanus booster 06/23/2033 06/23/2023, 03/25, 10/26/2004 Procedures Procedure Name Priority Date/Time Associated Diagnosis Comments 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 THIN PREP PAP SCREEN IMAGED Routine 11/15/2024 5:23 PM CDT Cervical cancer screening LIPID PANEL W REFLEX MEASURED LDL Routine 11/15/2024 4:28 PM CDT Screening cholesterol level XR MAMMO NAJMA BILAT SCREEN Routine 11/15/2024 1:31 PM CDT Visit for screening mammogram COLONOSCOPY 02/07/2024 10:14 AM CDT from Last 3 Months or Most Recently Relevant to Health Maintenance Results * 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 INTERPRETATION/ RESULT NEGATIVE FOR INTRAEPITHELIAL LESION OR MALIGNANCY (NIL) (none) 12/02/2024 2:08 PM CDT [facility] at 1408 CDT SPECIMEN ADEQUACY Satisfactory for evaluation Endocervical cells cannot be evaluated due to severe atrophy 12/02/2024 2:08 PM CDT [facility] HPV REQUEST HPV and PAP 12/02/2024 2:08 PM CDT [facility] ENTRAL LABORAT[facility] Date of LMP postmenopausal 2:08 PM CDT [facility] Healthcare IT [facility] ENTRAL [facility] Last Pap Date 03/04/19 12/02/2024 2:08 PM CDT [facility] Last Pap Result NIL 2:08 PM CDT [facility] Healthcare IT [facility] EN[facility] Abnormal Pap or [place] Bx in last 5 years No 12/02/2024 2:08 PM CDT [facility] Healthcare IT [facility] Menstrual Status Postmenopausal 12/02/2024 2:08 PM CDT [facility] [place] Bx Done Today No 12/02/2024 2:08 PM CDT [facility] Additional Information None given 12/02/2024 2:08 PM CDT [facility] Comment: Cytology is screened at [facility] - [address], [place] [address] and [facility] - [address], [place] [address] and [facility] - [address] [place] [address] Interpreted at [facility] - [address] [place] [address] Automated Review Successful 12/02/2024 2:08 PM CDT [facility] Comment:Specimen processed s uccessfully by automated business relationship manager device, theeventwallPrep Imaging System, [employer] ANCILLARY TESTING 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 HPV Ordered, Please see separate report 12/02/2024 2:08 PM CDT [facility] Note The pap test is a screening technique, not a diagnostic procedure. It is used primarily to screen for squamous cancers and precursor lesions. Published studies have shown that it is subject to both false negative and false positive results. The pap test should not be used as the sole means to diagnose or exclude pre-malignant and malignant lesions. 12/02/2024 2:08 PM CDT [facility] Other (Cervical) Non-Blood / Unknown 11/15/2024 5:23 PM CDT 11/15/2024 5:23 PM CDT Milla Desouza MD PATHOLOGY/CYTOLOGY Final Result [facility] [address] [address], * (ABNORMAL) LIPID PANEL W REFLEX MEASURED LDL (11/15/2024 4:28 PM CDT) CHOLESTEROL, TOTAL 194 <200 mg/dL [facility] HDL CHOLESTEROL 54 > OR = 50 mg/dL [facility] TRIGLYCERIDES 164(H) <150 mg/dL [facility] LDL-CHOLESTEROL 112(H) mg/dL (calc) [facility] Comment: Reference range: <100 Desirable range <100 mg/dL for primary prevention; <70 mg/dL for patients with CHD or diabetic patients with > or = 2 CHD risk factors. LDL-C is now calculated using the Jake calculation, which is a validated novel method providing better accuracy than the Friedewald equation in the estimation of LDL-C. Mehdi SANFORD et al. LOS. 2013;310(19): 8420-5157 (http://education.[employer]/faq/LCT589) CHOL/HDLC RATIO 3.6 <5.0 (calc) [facility] NON HDL CHOLESTEROL 140(H) <130 mg/dL (calc) [facility] Comment: For patients with diabetes plus 1 major ASCVD risk factor, treating to a non-HDL-C goal of <100 mg/dL (LDL-C of <70 mg/dL) is considered a therapeutic option. Blood BLOOD SPECIMEN / Unknown 11/15/2024 4:28 PM CDT 11/15/2024 4:29 PM CDT us Milla Desouza MD CHEMISTRY Fi nal Result [facility] [address] [place] [address], [facility] [address] [place] [address] * XR MAMMO NAJMA BILAT SCREEN (11/15/2024 1:31 PM CDT) Anatomical Region Laterality Modality BREASTS, Breast Left, Breast Right Bilateral Mammography Impressions 11/15/2024 3:30 PM CDT There is no radiographic evidence for malignancy. Recommend annual mammograms. MAMMOGRAM ASSESSMENT: ACR 1 Negative PATIENTS: You will also receive a letter with your examination results in an easy to read format. If you have questions about your results, please contact your referring provider. Narrative 11/15/2024 3:30 PM CDT For Patients: As a result of the Century Cures Act, medical imaging exams and procedure reports are released immediately into your electronic medical record. You may view this report before your referring provider. If you have questions, please contact your health care provider. XR MAMMO NAJMA BILAT SCREEN [[id number]] CLINICAL HISTORY: This is an asymptomatic 59 y.o. patient. INDICATION FOR EXAM: Mammogram Screening. TECHNIQUE: CC and MLO views were obtained. This study was evaluated with the assistance of Computer-Aided Detection. Breast Tomosynthesis was used in interpretation. COMPARISON FILM: Yes 06/23/23 [employer] 11/3/21 [facility] FINDINGS: There are scattered areas of fibroglandular density. There are no dominant masses, suspicious micro calcifications or areas of architectural distortion. us Milla Desouza MD MAMMO Fi nal Result * COLONOSCOPY (02/07/2024 10:14 AM CDT) 02/07/2024 10:1 4 AM CDT Narrative Transcriptions Mehdi Spivey MD - 02/07/2024 11:00 AM CDT Patient Name: Guera Adams Procedure Date: 02/07/2024 Gender: Female Date of : 1965 Admit Type: Outpatient Procedure: Colonoscopy Proceduralist: Mehdi Spivey MD , Jenna Mcdonough, SHELTON(Nurse), Noy Gerard (Nurse) Indications/Pre-Op Diagnosis: High risk colon cancer surveillance:Personal history of sessile serrated colon polyp(less than 10 mm in size) with no dysplasia,Family history of colon polyps Medications: Fentanyl 100 micrograms IV, Midazolam 4 mgIV, The level of sedation administered wasmoderate Procedure Description: The patient had risks, benefits and alternatives explained to andgave informed consent. The patient had a stable cardiopulmonary status and judged an adequate candidate for conscious sedation. The endoscope [id number] was passed through the anus andadvanced to the cecum, identified by appendiceal orifice and ileocecal valve.The colonoscopy was performed without difficulty. The patient toleratedthe procedure well. The quality of the bowel preparation was good. The ileocecal valve, appendiceal orifice, and rectum were photographed. Complications: No immediate complications. Estimated Blood Loss & Specimen: Estimated blood loss: none. Specimen collected - None Findings: The perianal and digital rectal examinations were normal. Scattered small-mouthed diverticula were found in the sigmoidcolon. The exam was otherwise without abnormality. Impressions/Post-Op Diagnosis: - Diverticulosis in the sigmoid colon. - The examination was otherwise normal. - No specimens collected. Recommendation: - Patient has a contact number available for emergencies. The signsand symptoms of potential delayed complications were discussed with the patient. Return to normal activities tomorrow. Written discharge instructions were provided to the patient. - Resume previous diet. - Continue present medications. - Repeat colonoscopy in 5 years. - Patient's sedation for a repeat study will require Anesthesia staff assistance. Moderate Sedation: A time out was performed before the procedure. Moderate (conscious) sedation was administered by the endoscopy nurse and supervised bythe endoscopist. The following parameters were monitored: oxygensaturation, heart rate, blood pressure, EKG, CO2, respiratory rate, adequacy of pulmonary ventilation and reponse to care. Please refer to the patient's medical record flowsheets and nursing notes for moderate sedation details. Total physician intraservice time was 13 minutes. Mehdi Spivey MD 02/07/2024 11:00:43 AM This report has been signed electronically. Note Initiated On: 02/07/2024 10:14 AM Procedure Code(s): --- Professional --- 98875, Colonoscopy, flexible; diagnostic, including collection of specimen(s) bybrushing or washing, when performed (separateprocedure) Diagnosis Code(s): --- Professional --- Z86.010, Personal history of colonicpolyps Z83.719, Family history of colon polyps, unspecified K57.30, Diverticulosis of large intestine without perforation or abscess withoutbleeding CPT copyright 2022 [employer]. All rights reserved. The codes documented in this report are preliminary and upon fire dispatcher reviewmay be revised to meet current compliance requirements. Scope In: 10:42:53 AM Scope Withdrawal Time 0 hours 6 minutes 6 seconds Scope Out: 10:53:17 AM Mehdi Spivey MD PROCEDURE ORD Final Res ult from Last 3 Months or Most Recently Relevant to Health Maintenance Insurance [place] [id number] Care Teams Project Management Engineer Relationship Specialty Start Date End Date Milla Desouza MD [address] [place] [address] PCP - General Family Practice 06/23/23
[2025-02-21 21:32] VITALS: BP 139/85; PULSE 97; RESP 18; TEMP 36.7; O2SAT 99; BMI 34.5
--- NOTE | 2025-02-21 21:35 | ED_ITS ---
HPI - Extremity Injury (Lower) General Time Seen by Provider: 21:35 Date Seen: 02/21/25 Chief Complaint: Extremity Pain/Injury, Lower Stated Complaint: right leg injury Time Seen by Provider: 02/21/25 21:30 Source: patient History of Present Illness HPI Narrative: Guera is a 59 yo female who presents to the emergency department for evaluation of right lower extremity injury. Patient states that she was straddling one of her cow's that was lying down to take its temperature. Patient reports it got up from under her and hit her/came up directly on her right inner thigh. Patient reports she fell but eventually was able to call her . Patient complains of severe pain to her right lower buttocks area, right inner thigh. Patient states unable to stand, move her right leg. Patient states that she was able to put a little weight unable was unable to lift her leg. Patient denies any tingling, numbness, no other injuries or complaints. Patient is not on chronic anticoagulation. Related Data Home Medications ?Medication ?Instructions ?Recorded ?Confirmed No Known Home Medications 12/17/2308/17 Allergies Allergy/AdvReac Type Severity Reaction Status Date / Time morphine Allergy Severe Swelling Verified 02/21/25 23:51 of Lip/Tongue/Throat amoxicillin Allergy Intermediate Verified 02/21/25 23:51 oxycodone Allergy Intermediate Verified 02/21/25 23:51 Review of Systems Narrative: Past medical history, past surgical history, medications, allergies, family history, and social history were reviewed with the patient. No additional pertinent items. A medically appropriate review of systems was performed with pertinent positives and negatives noted in HPI, all other systems negative. [facility] Medical History (Updated 02/22/25 @ 01:39 by Lizzy Guzman MD) Diverticulitis ?K57.92 - Diverticulitis of intestine, part unspecified, without perforation or abscess without bleeding (ICD-10) Hematochezia ?K92.1 - Melena (ICD-10) Social History What is your current living situation?: I presently have a place to live Problems where you live: no known problems Problems where you live details: N/A In the past 12 months, utilities in danger of being shut off: no In past 12 months, lack of transportation kept you from medical appts, meetings, work, or getting things needed for daily living: no In the past 12 mos, have been you worried that your food would run out before you had money to buy more?: never true In the past 12 mos, the food you bought just didn't last and you didn't have money to buy more?: never true Smoking Status: Never smoker How often do you have a drink containing alcohol: 2-4 times a month How often do you have six or more drinks on one occasion: Never AUDIT-C Alcohol total score: 2 Non-prescribed substance use: denies use Caffeine: Yes How often does anyone, including family, friends and others, physically hurt you : never How often does anyone, including family, friends and others, insult or talk down to you: never How often does anyone, including family, friends and others, threaten you with harm: never How often does anyone, including family, friends and others, scream or curse at you: never service: No Exam Narrative: Exam Narrative: General: Afebrile, lying prone, in severe distress secondary to pain HEENT: Normocephalic, atraumatic, conjunctiva normal. MMM Neck: non-tender, supple Cardio: regular rate. regular rhythm Resp: Normal work of breathing, no respiratory distress, lungs clear bilaterally, no wheezing, rhonchi, rales Chest/Back: no visual signs of trauma, no midline tenderness, no CVA tenderness Abdomen: soft, non distension, no tenderness, no peritoneal signs Neuro: alert and fully oriented. CN II-XII intact. MSK: +TTP right buttocks, right inner thigh with no obvious deformities, diffuse TTP, decrease ROM at hip 2/2 to pain, distally NVI, compartments soft Integumentary/Skin: no rash visualized, normal color Psych: normal affect, normal behavior Const: Vital Signs, click to edit/add: Vital Signs - 24 hr 02/21/25 21:32 02/22/25 00:09 Temperature 98.0 F Pulse Rate 66 Pulse Rate [Right Pulse Oximeter] 97 Respiratory Rate 18 16 Blood Pressure 124/51 L Blood Pressure [Ri ght Upper Arm] 139/85 Pulse Oximetry 99 96 Oxygen Delivery Me thod Room Air Room Air Course Vital Signs Vital signs: Initial Vital Signs Temperature 98.0 F 02/21/25 21:32 Temperature Source Temporal Artery Scan 02/21/25 21:32 Pulse Rate 97 02/21/25 21:32 Respiratory Rate 18 02/21/25 21:32 Blood Pressure 139/85 02/21/25 21:32 Blood Pressure Mean 103 02/21/25 21:32 Blood Pressure Position Supine 02/21/25 21:32 Pulse Oximetry 99 02/21/25 21:32 Oxygen Delivery Method Room Air 02/21/25 21:32 Vital Signs Temperature 98.0 F 02/21/25 21:32 Pulse Rate 97 02/21/25 21:32 Respiratory Rate 18 02/21/25 21:32 Blood Pressure 139/85 02/21/25 21:32 Pulse Oximetry 99 02/21/25 21:32 Oxygen Delivery Method Room Air 02/21/25 21:32 Temperature 98.0 F 02/21/25 21:32 Pulse Rate 66 02/22/25 00:09 Respiratory Rate 16 02/22/25 00:09 Blood Pressure 124/51 L 02/22/25 00:09 Pulse Oximetry 96 02/22/25 00:09 Oxygen Delivery Method Room Air 02/22/25 00:09 Medications Administered Medications: Generic Name Dose Route Start Last Admin Trade Name Freq PRN Reason Stop Dose Admin Fentanyl 50 mcg 02/21/25 23:17 02/22/25 00:22 Fentanyl 100 Mcg/2 Ml Inj IVP 50 mcg Q30M PRN Administration severe pain Discontinued Medications Generic Name Dose Route Start Last Admin Trade Name Freq PRN Reason Stop Dose Admin Fentanyl 50 mcg 02/21/25 22:24 02/21/25 22:30 Fentanyl 100 Mcg/2 Ml Inj IVP 02/21/25 22:25 50 mcg ONCE ONE Administration Ketorolac Tromethamine 15 mg 02/22/25 01:10 02/22/25 01:18 Ketorolac 15 Mg/Ml Inj IVP 02/22/25 01:11 15 mg ONCE ONE Administration Tramadol HCl 50 mg 02/22/25 00:32 02/22/25 01:19 Tramadol Hcl 50 Mg Tablet PO 02/22/25 00:33 50 mg ONCE ONE Administration MDM - Extremity Injury (Lower) MDM Narrative Medical decision making narrative: Guera is a 59 yo female who presents to the emergency department for evaluation of right lower extremity injury. Upon arrival patient is nontoxic appearing, afebrile, in severe distress secondary to pain. Patient hemodynamically stable vital signs within normal limits. Differential diagnosis includes but is not limited to contusion versus hematoma versus fracture versus dislocation versus musculoskeletal strain versus tear among others. Patient with multiple allergies. Patient was treated with IV fentanyl upon arrival, comprehensive labs, CT imaging performed. I reviewed comprehensive labs which are unremarkable with white blood cell count 11.7, hemoglobin 13.9, no acute metabolic electrolyte abnormality. I personally reviewed interpreted CT scan of the right femur which demonstrates no acute osseous injuries or abnormalities. No evidence of large hematoma. Mild edema around in the adductor muscle bellies. - suggestive of strain/tear. On re-evaluation patient is still in significant pain, only comfortable when flexing her right leg at 90?, difficulty extending, abducting, abduct thing. Patient was treated with IV fentanyl, Toradol, oral tramadol (as she reports she has tolerated this in the past). I discussed results with patient and family. Given patient's significant pain, difficulty with range of motion recommend admission for pain medication, physical therapy, possible MRI. I discussed patient management with hospitalist who agrees with observation admission for pain control. Patient understands and agrees with the plan. Medical Records Attestation: I reviewed the patient's medical records. Lab Data Attestation: I reviewed the patient's lab results. Labs: Lab Results 02/21/25 Range/Units 21:54 WBC 11.71 H (4.50-11.00) K/uL RBC 4.71 (4.00-5.20) m/uL Hgb 13.9 (12.0-16.0) gm/dL Hct 42.5 (33.0-51.0) % MCV 90 (80-100) fL MCH 30 (26-34) pg MCHC 33 (32-36) gm/dL RDW Coeff of Mora 12.8 (11.5-15.5) % Plt Count 277 (140-440) K/uL Neut % (Auto) 64.8 (42.0-72.0) % Lymph % (Auto) 26.1 (20-44) % [place] % (Auto) 6.7 (0.0-11.0) % Eos % (Auto) 1.3 (0.0-7.0) % Baso % (Auto) 0.3 (0.0-3.0) % Neut # (Auto) 7.60 H (1.7-7.0) K/uL Lymph # (Auto) 3.10 H (0.90-2.90) K/uL [place] # (Auto) 0.80 (0.00-0.90) K/UL Eos # (Auto) 0.20 (0.00-0.50) K/uL Baso # (Auto) 0.00 (0.00-0.30) K/uL Abs Immat Gran (auto) 0.10 (0.00-0.30) K/uL Imm/Tot Granulo (auto) 0.8 % INR 0.93 (0.91-1.10) Sodium 138 (135-149) mmol/L Potassium 4.5 (3.6-5.1) mmol/L Chloride 107 (96-114) mmol/L Carbon Dioxide 23 (20-32) mmol/L Anion Gap 8 (7-15) mEq/L BUN 19 (7-30) mg/dL Creatinine 0.8 (0.5-1.5) mg/dL Estimated Creat Clear 63.41 Estimated GFR 85 ml/min Glucose 114 (60-115) mg/dL Calcium 9.8 (8.4-10.6) mg/dL Blood Type O Positive Antibody Screen NEGATIVE Discharge Plan Discharge Clinical Impression: Acute pain of right thigh, Blunt trauma of right thigh Patient Disposition: Admitted As Observation Condition: Stable
[2025-02-21 21:50] VITALS: O2SAT 96
--- NOTE | 2025-02-21 21:56 | CRLHL7_ITS ---
For Patients: As a result of the Century Cures Act, medical imaging exams and procedure reports are released immediately into your electronic medical record. You may view this report before your referring provider. If you have questions, please contact your health care provider. INDICATION: Femoral trauma, kicked by cow in back of femur TECHNIQUE: CT right femur with i.v. contrast. Coronal and sagittal reformats were obtained. CONTRAST: 100 mL Isovue 370 COMPARISON: None FINDINGS: Bone: No acute fractures or aggressive bone lesions are identified. Joint: The visualized joints are unremarkable. No significant joint effusion is seen. Soft tissue: The visualized right external iliac, common femoral and superficial femoral arteries are normal in enhancement. The adjacent vein is not well opacified but normal in morphology. No significant hematoma is identified. Mild edema is present surrounding the adductor muscle bellies. No radiopaque foreign bodies are seen. IMPRESSION: 1. No acute osseous injuries or abnormalities are noted. Dictated by Fred Jalloh MD @ 02/22/2025 12:17:10 AM Please note that all CT scans at this facility use dose modulation, iterative reconstruction, and/or weight-based dosing when appropriate to reduce radiation dose to as low as reasonably achievable. Dictated by: Fred Jalloh MD @ 02/22/2025 00:21:09 (Electronically Signed)
[2025-02-21 22:00] LABS: Hematocrit 42.5 % (33.0-51.0); Hemoglobin* 13.9 gm/dL (12.0-16.0); Immature Granulocytes Pct Auto 0.8 %; Mean Corpuscular HGB Conc 33 gm/dL (32-36); Mean Corpuscular Hemoglobin 30 pg (26-34); Mean Corpuscular Volume 90 fL (80-100); RDW Coefficient of Variation % 12.8 % (11.5-15.5); Red Blood Count 4.71 m/uL (4.00-5.20); White Blood Count* 11.71 K/uL (4.50-11.00)
[2025-02-21 22:02] LABS: Immature Granulocytes Abs Auto 0.10 K/uL (0.00-0.30); Lymphocytes Absolute Auto 3.10 K/uL (0.90-2.90); Slide Review Reflex No
[2025-02-21 22:18] LABS: Chloride* 107 mmol/L (96-114)
[2025-02-21 22:19] LABS: Potassium* 4.5 mmol/L (3.6-5.1); Sodium* 138 mmol/L (135-149)
[2025-02-21 22:20] LABS: INR 0.93 (0.91-1.10); Prothrombin Time 13.2 Seconds
[2025-02-21 22:21] LABS: Blood Urea Nitrogen* 19 mg/dL (7-30); Creatinine* 0.8 mg/dL (0.5-1.5); Est. Creatinine Clearance* 63.41; Estimated Glomerular Filt Rate 85 ml/min
[2025-02-21 22:22] LABS: Anion Gap 8 mEq/L (7-15); Calcium* 9.8 mg/dL (8.4-10.6); Carbon Dioxide* 23 mmol/L (20-32); Glucose* 114 mg/dL (60-115)
[2025-02-22 00:09] VITALS: BP 124/51; PULSE 66; RESP 16; O2SAT 96
[2025-02-22] MEDS: TRAMADOL HCL 50 MG TABLET PO (01:19)
[2025-02-22 02:19] VITALS: TEMP 36.7
[2025-02-22 02:36] VITALS: BP 125/74; BP 133/60; PULSE 70; PULSE 84; RESP 16; TEMP 36.7; O2SAT 96
[2025-02-22 02:39] VITALS: BP 136/75; PULSE 69; RESP 18; TEMP 36.6; O2SAT 94; O2SAT 95; BMI 34.7
--- NOTE | 2025-02-22 02:52 | W.PM.THH&P_ITS ---
Telehealth- H&P: HPI History of Present Illness Date Seen: 02/22/25 Chief complaint: right leg injury Narrative: Guera Adams is seen as an Interactive Telehealth visit. Guera Adams is a 59 year old female who has no significant past medical history who present with right leg pain after an [place] her [place]. The patient was in her usual state of health today. She had a sick calf she was trying to take a temperature, got up quickly struck her right leg and flipped her over on the ground. She felt a crunching sensation in her right thigh. She now has pain from her inner thigh below the buttock down her leg into the knee. It is an aching pain that is worse when she tries to bend or move the leg. She had to keep her knee bent to alleviate the pain and was unable to ambulate or put weight on the leg. She denied any other injuries or sources of pain. The pain was so severe she was unable to ambulate, she came in the ER and underwent imaging of the right thigh. CT scan did not show any fracture or large hematoma. She has an intolerance to morphine and oxycodone. She has tolerated tramadol in the past. She received fentanyl in the ER which she tolerated as well. The pain is severe and limiting her function thus she required admission for pain management. Review of Systems Status of ROS: Reports: 10 or more systems reviewed and unremarkable except as noted in History and below [facility] Medical History Diverticulitis ?K57.92 - Diverticulitis of intestine, part unspecified, without perforation or abscess without bleeding (ICD-10) Hematochezia ?K92.1 - Melena (ICD-10) Social History What is your current living situation?: I presently have a place to live Problems where you live: no known problems Problems where you live details: N/A In the past 12 months, utilities in danger of being shut off: no In past 12 months, lack of transportation kept you from medical appts, meetings, work, or getting things needed for daily living: no In the past 12 mos, have been you worried that your food would run out before you had money to buy more?: never true In the past 12 mos, the food you bought just didn't last and you didn't have money to buy more?: never true Smoking Status: Never smoker Second hand tobacco smoke exposure: No How often do you have a drink containing alcohol: 2-4 times a month How often do you have six or more drinks on one occasion: Never AUDIT-C Alcohol total score: 2 Non-prescribed substance use: denies use Caffeine: Yes How often does anyone, including family, friends and others, physically hurt you : never How often does anyone, including family, friends and others, insult or talk down to you: never How often does anyone, including family, friends and others, threaten you with harm: never How often does anyone, including family, friends and others, scream or curse at you: never service: No Meds Home Medications and Allergies Home Medications ?Medication ?Instructions ?Recorded ?Confirmed ?Type No Known Home Medications 12/17/2308/17 History Allergies Allergy/AdvReac Type Severity Reaction Status Date / Time morphine Allergy Severe Swelling Verified 02/21/25 23:51 of Lip/Tongue/Throat amoxicillin Allergy Intermediate Verified 02/21/25 23:51 oxycodone Allergy Intermediate Verified 02/21/25 23:51 Exam Narrative Exam Narrative: Physical Exam GENERAL: ?vital signs reviewed, well developed and nourished, in no distress HEENT: pupils are equal round and reactive to light, extraocular movements are grossly within normal limits and oral mucosa is moist. NECK: Supple without lymphadenopathy or thyromegaly according to nursing staff examination observation HEART: Regular rate and rhythm without any rubs, murmurs, or gallops. LUNGS: Clear to auscultation bilaterally with good air movement throughout ABDOMEN: Observation from nurse assisted exam, abdomen appears soft, nontender, and nondistended EXTREMITIES: Strength and sensation is observed to be grossly within normal limits in the upper and lower extremities.? No focal strength deficit is observed. Right knee is flexed, no significant bruising or deformity of the right leg. She has significant pain with attempted movement SKIN:? Observed warm and dry with color normal Const Vital Signs, click to edit/add: Vital Signs - 24 hr 02/21/25 21:32 02/21/25 21:50 02/22/25 00:09 Temperature 98.0 F Pulse Rate 66 Pulse Rate [Right Pulse Oximeter] 97 Respiratory Rate 18 16 Blood Pressure 124/51 L Blood Pressure [Right Upper Arm] 139/85 Pulse Oximetry 99 96 96 Oxygen Delivery Method Room Air Room Air 02/22/25 02:19 02/22/25 02:36 Temperature 98.0 F 98.0 F Pulse Rate Pulse Rate [Right Pulse Oximeter] 84 Respiratory Rate 16 Blood Pressure Blood Pressure [Right Upper Arm] 125/74 Pulse Oximetry 96 Oxygen Delivery Method Room Air Hospitalist - H&P: Result Labs Labs: Short CBC 02/21/25 Range/Units 21:54 WBC 11.71 H (4.50-11.00) K/uL Hgb 13.9 (12.0-16.0) gm/dL Hct 42.5 (33.0-51.0) % Plt Count 277 (140-440) K/uL BMP 02/21/25 21:54 Sodium 138 Potassium 4.5 Chloride 107 Carbon Dioxide 23 BUN 19 Creatinine 0.8 Glucose 114 Calcium 9.8 Assessment and Plan Assessment and plan (1) Blunt trauma of right thigh: Status: Acute (2) Acute pain of right thigh: Status: Acute Plan Right leg injury Intractable pain Unable to ambulate secondary to pain Obvious fracture or deformity CT of R leg personally reviewed: No fracture Multimodal pain management Scheduled acetaminophen 975 mg 4 times daily Tramadol 100 mg every 6 hours as needed Fentanyl 50 mcg IV for breakthrough/severe pain Tizanidine 4 mg every 6 hours as needed muscle spasms PT evaluation If unable to ambulate may need MRI to look for muscle tear or other soft tissue/tendon or ligamentous injuries SCD for prophylaxis Telehealth: Statement Statement Telehealth Visit: Today's History and Physical is provided via interactive telehealth by Luis Angel Dougherty MD.? Patient is located at [facility].? Provider is located at [facility].? Nursing staff assisted with the patient's exam. The visit being done today meets criteria for a telehealth visit and the patient or patient?s parent/guardian is aware the visit is a telehealth visit. Camera Start Time: 02:35 Camera End Time: 02:45
[2025-02-22 02:54] VITALS: O2SAT 95
[2025-02-22] MEDS: ACETAMINOPHEN 325 MG TABLET 975 MG PO ×2 (03:20→08:35)
[2025-02-22] MEDS: TIZANIDINE HCL 4 MG TABLET PO (03:21)
--- NOTE | 2025-02-22 06:49 | PC.NURSE ---
The patient arrived to the unit on a bed and was transferred to our bed via sheet. Reported to be unable to walk without considerable pain. Calm and appropriate in behavior but they grimace and grunt in pain whenever the right leg is moved. Questioning the patient revealed their pain to be at 5/10 in the area of the leg just?below the?gluteus. This pain radiates down the inner thigh. Keeping the leg in a 90 degree bent position with pillows reduces the pain. Ice was applied and PRN medications are available. No bruising or swelling seen. CMS intact. They have not attempted ambulation of the time of this writing but we have a walker available to try and stand and pivot. No further developments overnight.?
[2025-02-22 07:00] VITALS: BP 123/57; PULSE 55; RESP 18; TEMP 36.6; O2SAT 98
[2025-02-22] MEDS: SODIUM CHLORIDE 0.9 % (FLUSH) 10 ML SYRINGE 5 ML IVF (07:37)
[2025-02-22] MEDS: TRAMADOL HCL 50 MG TABLET 100 MG PO (08:34)
--- NOTE | 2025-02-22 08:52 | PM.IMPN1 ---
Assessment and Plan Assessment and plan (1) Blunt trauma of right thigh: Problem comment: -blunt traumatic Right leg injury. -No acute osseous injuries or abnormalities are noted per CT of Rt LL. -Cont multimodal pain management -PT evaluation & Tx -May need MRI to look for muscle tear or other soft tissue/tendon or ligamentous injuries if no improvement. -May consider Ortho consult if no improvement. Status: Acute (2) Acute pain of right thigh: Problem comment: Scheduled acetaminophen 975 mg 4 times daily Tramadol 100 mg every 6 hours as needed Fentanyl 50 mcg IV for breakthrough/severe pain Tizanidine 4 mg every 6 hours as needed muscle spasms Status: Acute Total Time Spent Total Time Spent: Today I spent 50 minutes seeing the patient, reviewing Expanse and EPIC notes/diagnostics, discussing the care plan with our care time that includes social work, PT/OT, pharmacy, RT, chcf and documenting my impressions and plan in the medical record. Subjective Date Seen: 02/22/25 Interval history: Patient was seen and examined at bedside today. She states that she still have pain starting from her right buttock posteriorly down her thigh. Overnight she needed multiple pain medications. Patient was start physical therapy today morning. Exam Narrative: Exam Narrative: Physical exam GENERAL: Comfortable, no acute distress. HEAD AND NECK: Atraumatic, normocephalic CARDIOVASCULAR: RRR. Normal S1, S2. No murmurs. RESPIRATORY: Clear to auscultation B/L. Good air entry B/L. No wheezes or rhonchi. MSK: Patient is able to raise her right lower extremity. Right thigh is a bit swollen compared to the left one, w/ mild tenderness to palpation. No external bruising or open wounds. NEUROLOGY: Alert, awake, oriented X 3. Normal speech. PSYCH: Normal mood, normal affect. Const: Vital Signs, click to edit/add: Vital Signs - 24 hr 02/21/25 21:32 02/21/25 21:50 02/22/25 00:09 Temperature 98.0 F Pulse Rate 66 Pulse Rate [Left P ulse Oximeter] Pulse Rate [Right Pulse Oximeter] 97 Respiratory Rate 18 16 Blood Pressure 124/51 L Blood Pressure [Ri ght Arm] Blood Pressure [Ri ght Upper Arm] 139/85 Pulse Oximetry 99 96 96 Oxygen Delivery Me thod Room Air Room Air 02/22/25 02:19 02/22/25 02:36 02/22/25 02:39 Temperature 98.0 F 98.0 F 97.8 F Pulse Rate Pulse Rate [Left P ulse Oximeter] 70 69 Pulse Rate [Right Pulse Oximeter] 84 Respiratory Rate 16 18 Blood Pressure Blood Pressure [Ri ght Arm] 133/60 136/75 Blood Pressure [Ri ght Upper Arm] 125/74 Pulse Oximetry 96 94 Oxygen Delivery Me thod Room Air Room Air 02/22/25 02:39 02/22/25 02:54 Temperature Pulse Rate Pulse Rate [Left P ulse Oximeter] Pulse Rate [Right Pulse Oximeter] Respiratory Rate 18 Blood Pressure Blood Pressure [Ri ght Arm] Blood Pressure [Ri ght Upper Arm] Pulse Oximetry 95 95 Oxygen Delivery Me thod Room Air Labs Labs: Laboratory Results - last 24 hr 02/21/25 21:54 WBC 11.71 H RBC 4.71 Hgb 13.9 Hct 42.5 MCV 90 MCH 30 MCHC 33 RDW Coeff of Mora 12.8 Plt Count 277 Neut % (Auto) 64.8 Lymph % (Auto) 26.1 [place] % (Auto) 6.7 Eos % (Auto) 1.3 Baso % (Auto) 0.3 Neut # (Auto) 7.60 H Lymph # (Auto) 3.10 H [place] # (Auto) 0.80 Eos # (Auto) 0.20 Baso # (Auto) 0.00 Abs Immat Gran (auto) 0.10 Imm/Tot Granulo (auto) 0.8 INR 0.93 Sodium 138 Potassium 4.5 Chloride 107 Carbon Dioxide 23 Anion Gap 8 BUN 19 Creatinine 0.8 Estimated Creat Clear 63.41 Estimated GFR 85 Glucose 114 Calcium 9.8 Blood Type O Positive Antibody Screen NEGATIVE
[2025-02-22] MEDS: OMEPRAZOLE 20 MG CAPSULE DR PO (09:12)
--- NOTE | 2025-02-22 10:33 | P.DS_ITS ---
DS: Providers Provider Date Seen: 02/22/25 Date of admission: 02/22/25 02:22 Primary care physician: Milla Desouza MD Admitting Clinician: Luis Angel Dougherty MD Consults: 02/22/25 02:50 Consult to Physical Therapy [CONS] Routine Comment: Reason(s) for PT Consult:: Evaluate Ambulation Any Restrictions?:: No Restrictions Attending Physician on discharge: Luis Angel Dougherty MD DS: Diagnosis Discharge Diagnosis (1) Blunt trauma of right thigh: Status: Acute Problem details: -blunt traumatic Right leg injury. -No acute osseous injuries or abnormalities are noted per CT of [facility]. -02/22: Patient was evaluated by physical therapist, she was able to walk and was able to bear weight on her right lower extremity. - I contacted the radiologist on-call and discussed the CT scan. The radiologist states that the CT scan is not showing any severe or major tear in her muscles, and because there is very mild edema around the adductor muscles and no hematoma, then mostly this would be either a strain injury or it could be a minor tear. In addition, on my examination there was no bruising in the area or hematoma collection. -Discussed with the patient the findings and that physical therapy and pain management are the treatment for either strain injury or a minor tear. -PT evaluation: Pt is appropriate to be sent home with home physical therapy. -in case patient fails physical therapy, I discussed with her the need for an orthopedic consult for evaluation at that time and the possibility of having an MRI done at that time. (2) Acute pain of right thigh: Status: Acute Problem details: Scheduled acetaminophen 975 mg 4 times daily Tramadol 100 mg every 6 hours as needed Fentanyl 50 mcg IV for breakthrough/severe pain Tizanidine 4 mg every 6 hours as needed muscle spasms DS: Summary Hospital Course Hospital Course: 59-year-old female patient with no significant past medical history was admitted for blunt traumatic Right leg injury. No acute osseous injuries or abnormalities are noted per CT of [facility]. Patient was evaluated by physical therapist, she was able to walk with being able to bear weight on her right lower extremity. I contacted the radiologist on-call and discussed the CT scan. The radiologist states that the CT scan is not showing any severe or major tear in her muscles, and because there is very mild edema around the adductor muscles and no hematoma, then mostly this would be either a strain injury or it could be a minor tear. In addition, on my examination there was no bruising in the area or hematoma collection. -Discussed with the patient the findings and that physical therapy and pain management are the treatment for either strain injury or a minor tear. -PT evaluation: Pt is appropriate to be sent home with home physical therapy. -in case patient fails physical therapy, I discussed with her the need for an orthopedic consult for evaluation at that time and the possibility of having an MRI done at that time. Status at Discharge Functional status at discharge: uses cane/walker Overall status at discharge: patient is progressing back to baseline Time Spent with Patient Time attestation: Total time spent providing and/or coordinating discharge services: 45 min Exam Narrative: Exam Narrative: GENERAL: Comfortable, no acute distress. HEAD AND NECK: Atraumatic, normocephalic CARDIOVASCULAR: RRR. Normal S1, S2. No murmurs. RESPIRATORY: Clear to auscultation B/L. Good air entry B/L. No wheezes or rhonchi. MSK: Patient is able to raise her right lower extremity. Right thigh is a bit swollen compared to the left one, w/ mild tenderness to palpation. No external bruising or open wounds. No fluctuation. (patient was able to walk and bear weight on her lower extremity). NEUROLOGY: Alert, awake, oriented X 3. Normal speech. PSYCH: Normal mood, normal affect. Const: Vital Signs, click to edit/add: Vital Signs - 24 hr 02/21/25 21:32 02/21/25 21:50 02/22/25 00:09 Temperature 98.0 F Pulse Rate 66 Pulse Rate [Left P ulse Oximeter] Pulse Rate [Right Pulse Oximeter] 97 Respiratory Rate 18 16 Blood Pressure 124/51 L Blood Pressure [Ri ght Arm] Blood Pressure [Ri ght Upper Arm] 139/85 Pulse Oximetry 99 96 96 Oxygen Delivery Me thod Room Air Room Air 02/22/25 02:19 02/22/25 02:36 02/22/25 02:39 Temperature 98.0 F 98.0 F 97.8 F Pulse Rate Pulse Rate [Left P ulse Oximeter] 70 69 Pulse Rate [Right Pulse Oximeter] 84 Respiratory Rate 16 18 Blood Pressure Blood Pressure [Ri ght Arm] 133/60 136/75 Blood Pressure [Ri ght Upper Arm] 125/74 Pulse Oximetry 96 94 Oxygen Delivery Me thod Room Air Room Air 02/22/25 02:39 02/22/25 02:54 02/22/25 07:00 Temperature 97.9 F Pulse Rate Pulse Rate [Left P ulse Oximeter] 55 L Pulse Rate [Right Pulse Oximeter] Respiratory Rate 18 18 Blood Pressure Blood Pressure [Ri ght Arm] 123/57 L Blood Pressure [Ri ght Upper Arm] Pulse Oximetry 95 95 98 Oxygen Delivery Me thod Room Air Room Air 02/22/25 07:00 Temperature Pulse Rate Pulse Rate [Left P ulse Oximeter] Pulse Rate [Right Pulse Oximeter] Respiratory Rate 18 Blood Pressure Blood Pressure [Ri ght Arm] Blood Pressure [Ri ght Upper Arm] Pulse Oximetry Oxygen Delivery Me thod DS: Data Data Completed and Pending Labs on day of discharge: Labs from last 24 hours 02/21/25 21:54 WBC 11.71 H RBC 4.71 Hgb 13.9 Hct 42.5 MCV 90 MCH 30 MCHC 33 RDW Coeff of Mora 12.8 Plt Count 277 Neut % (Auto) 64.8 Lymph % (Auto) 26.1 [place] % (Auto) 6.7 Eos % (Auto) 1.3 Baso % (Auto) 0.3 Neut # (Auto) 7.60 H Lymph # (Auto) 3.10 H [place] # (Auto) 0.80 Eos # (Auto) 0.20 Baso # (Auto) 0.00 Abs Immat Gran (auto) 0.10 Imm/Tot Granulo (auto) 0.8 INR 0.93 Sodium 138 Potassium 4.5 Chloride 107 Carbon Dioxide 23 Anion Gap 8 BUN 19 Creatinine 0.8 Estimated Creat Clear 63.41 Estimated GFR 85 Glucose 114 Calcium 9.8 Blood Type O Positive Antibody Screen NEGATIVE Discharge Plan Discharge Disposition: Home w/ Parent or Adult Date of Admission: 02/22/25 02:22 Attending Provider on Discharge: Inna Foss Primary Care Provider: Milla Desouza Condition: Stable Anticipated Discharge Date/Time: 02/22/25 10:38 Discharge Medications: New tizanidine 4 mg Tablet 4 mg PO Q12H PRN (Reason: Muscle Spasm) 15 Days Qty: 30 0RF tramadol 50 mg Tablet 100 mg PO Q8H PRN (Reason: mild to moderate pain) 3 Days Qty: 16 0RF omeprazole 20 mg Capsule,Delayed Release(Dr/Ec) 20 mg PO DAILY 15 Days Qty: 15 0RF acetaminophen 500 mg capsule 1,000 mg PO Q8H PRNQty: 60 0RF ibuprofen 400 mg tablet 400 mg PO Q8H PRNQty: 20 0RF Rx Instructions: Take after meals No Action No Known Home Medications Discharge Orders: Discharge Order (Routine); Ordered 02/22/25 Ordered By: Inna Foss Patient Education: Muscle Strain (DC) Additional Instructions: -follow-up with primary care physician in 1-2 weeks -you will need a course of physical therapy. -In case physical therapy fails to improve your symptoms, you may need an orthopedic consult for evaluation and the possibility of having an MRI done at that time. Activity Level: Activity as Tolerated Discharge Diet: Regular Follow Up Appointments: Milla Desouza MD [Primary Care Provider, Family Practice] Forms: MyHealth Info Instructions
--- NOTE | 2025-02-22 12:32 | PC.NURSE ---
Discharge Note (258)? ? Patient has been very cooperative and pleasant throughout shift. 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 She was able to walk inside her room with PT/OT, one assist and a walker. Activity as tolerated. No bruises or long noted on the affected leg. Patient reports that pain eases when affected leg is bent. Pain has been managed appropriately, and she has been educated in pain management and activity level. Clear lung sounds bilaterally, normoactive bowel sounds. Patient discharged on 02/22/2025 at 12:30 pm.? ?
--- NOTE | 2025-02-24 16:00 | PC.SOCIAL ---
[employer] Consult: SW called patient three times to discuss home care. Patient did not answer and SW unable to leave a voicemail as mailbox was full. SW to f/u on 02/25.
--- NOTE | 2025-02-25 12:42 | PC.SOCIAL ---
Discharge planning: SW called patient twice. Patient did not answer and SW could not leave a voicemail as mailbox is full. SW called patient's first emergency contact, , Juan, he also did not answer and SW could not leave a voicemail as his voicemail was full.
--- NOTE | 2025-02-26 13:13 | PC.SOCIAL ---
Discharge planning: SW called patient and spoke with her about Home Health referral. Patient states she would prefer to complete OP PT at [facility] in [place] as she has been there before and has someone that can drive her. SW explained she will see if SW is able to make the referral or if it would need to come from her PCP. NIHARIKA called patient and informed that a referral would be sent to [facility] and then they will reach out to her. Patient had no concerns or questions. NIHARIKA called [facility] to obtain fax[facility] [phone]. NIHARIKA obtained new order from provider and [facility]
== END 2025-02-22 12:30 | disposition home or self-care (01) ==
LOC: ED 02-22 02:08 → MEDSURG 02-22 02:23
PROVIDERS: Admitting Provider Internal Medicine; Emergency Provider Emergency Medicine; PCP Student in an Organized Health Care Education/Training Program; Visit Provider Internal Medicine
DX: S79.821A Other specified injuries of right thigh, initial encounter (principal)
CPT/HCPCS: 36415; 73701; 80048; 85025; 85610; 86850; 86900; 86901; 94761; 96374; 96375; 96376; 97116; 97161; 97530; 99285; A9270; G0378; J1885; J3010; Q9967